=== PATIENT | male | born 1965 | race Caucasian/White ===

== ENCOUNTER → 2018-05-31 15:44 | Outpatient (CLI) | payer OTHER, SELFPAY ==
[2018-05-31 18:04] LABS: Alanine Aminotransferase 37 IU/L (21-72); Albumin 4.4 g/dL (3.5-5.0); Albumin Globulin Ratio 1.8 (1.0-2.8); Alkaline Phosphatase 56 U/L (38-126); Aspartate Aminotransferase 30 IU/L (17-59); Blood Urea Nitrogen 23 mg/dL (9-20); Calcium 9.6 mg/dL (8.4-10.2); Carbon Dioxide 31 mmol/L (22-32); Chloride 104 mmol/L (98-107); Cholesterol 174 mg/dL (140-199); Estimated Glomerular Filt Rate > 60.0 mL/min (>60); Globulin 2.5 g/dL (1.7-4.1); Glucose 92 mg/dL (70-100); HDL Cholesterol 63 mg/dL (40-60); HEMOLYSIS < 15 (0-50); LDL Cholesterol Calculated 82 mg/dL (<100); Potassium 4.4 mmol/L (3.4-5.1); Sodium 144 mmol/L (137-145); Total Protein 6.9 g/dL (6.3-8.2); Triglycerides 144 mg/dL (35-150)
[2018-05-31 18:33] LABS: Thyroid Stimulating Hormone 1.54 uIU/mL (0.47-4.68)
== END ==
PROVIDERS: PCP Family Medicine; Visit Provider Internal Medicine
DX: E78.00 Pure hypercholesterolemia, unspecified (principal); F32.9 Major depressive disorder, single episode, unspecified
CPT/HCPCS: 36415; 80053; 80061; 84443

== ENCOUNTER → 2021-06-14 09:59 | Outpatient (ROUT) | payer OTHER, SELFPAY ==
[2021-06-14 10:34] LABS: COVID19 -Nasal RAPID Negative (Negative)
== END ==
PROVIDERS: PCP Student in an Organized Health Care Education/Training Program; Visit Provider Nurse Practitioner
DX: Z20.822 Contact with and (suspected) exposure to COVID-19 (principal)
CPT/HCPCS: 87635

== ENCOUNTER → 2021-10-08 11:19 | Outpatient (CLI) | payer OTHER, SELFPAY ==
--- NOTE | 2021-10-08 11:20 | DI.RAD.S_ITS ---
PROCEDURE: XR SINUS <3V INDICATIONS: Left sided sinus pain TECHNIQUE: 3 views of the sinuses were acquired. COMPARISON: None. FINDINGS: Sinuses: The visualized sinuses demonstrate no air-fluid levels or mucosal thickening. The visualized mastoids also appear clear. Bones: No suspicious bony lesions. Nasal septum is midline. IMPRESSION: Negative examination as above. Dictated by: Jose Houser M.D. on 10/08/2021 at 12:48 Approved by: Jose Houser M.D. on 10/08/2021 at 12:48
== END ==
PROVIDERS: PCP Student in an Organized Health Care Education/Training Program; Referring Provider Student in an Organized Health Care Education/Training Program; Visit Provider Student in an Organized Health Care Education/Training Program
DX: J34.89 Other specified disorders of nose and nasal sinuses (principal)
CPT/HCPCS: 70210

== ENCOUNTER → 2022-05-17 11:18 | Outpatient (CLI) | payer OTHER, SELFPAY ==
[2022-05-17 12:37] LABS: COVID19 -Nasal RAPID Negative (Negative)
== END ==
PROVIDERS: PCP Student in an Organized Health Care Education/Training Program; Visit Provider Surgery
DX: Z20.822 Contact with and (suspected) exposure to COVID-19 (principal); Z01.812 Encounter for preprocedural laboratory examination
CPT/HCPCS: 87635; C9803

== ENCOUNTER 2022-05-18 08:43 | Day surgery (SDC) | payer OTHER, SELFPAY ==
[2022-05-18 09:09] VITALS: BP 120/70; PULSE 48; RESP 16; TEMP 36.6; O2SAT 100; BMI 23.0
[2022-05-18] MEDS: LACTATED RINGERS 1,000 ML 150 ML IV (09:21)
--- NOTE | 2022-05-18 09:27 | PM.HP.1 ---
History of Present Illness History of Present Illness Date Patient Seen: 05/18/22 Time Patient Seen: 09:27 [address]: [facility] [place] Narrative: Last colonoscopy 10 years ago. No symptoms or family history for colon cancer Patient History Medical History Anxiety (2011) Asthma Chronic headaches Colon polyps (01/20/16) Depression (2011) Hayfever History of prematurity Hyperlipidemia Tibia/fibula fracture (11/2013) Surgical History Anesthesia History of colonoscopy with polypectomy (01/20/16) History of esophagogastroduodenoscopy (EGD) (01/20/16) History of knee surgery (1989) History of open reduction and internal fixation (ORIF) procedure (11/2013) History of tonsillectomy (2010) Family & Social History Family History Brother Age: 52 Osteoporosis Father CAD (coronary artery disease) [place] (myocardial infarction) Mother Age: 81 Hyperlipidemia Social History: household members spouse Tobacco & Substance use: Smoking Status Never smoker alcohol intake current alcohol intake frequency a few times a month Substance Use Type does not use Meds Home Medications and Allergies Home Medications Medication Instructions Recorded Confirmed Type levothyroxine PO 06/14/21 10/08/21 History citalopram 20 mg tablet See Rx Instructions .Route 02/02/22 05/18/22 Rx .COMPLEX #90 tabs Allergies Allergy/AdvReac Type Severity Reaction Status Date / Time amoxicillin [From Augmentin] Allergy Mild Rash Verified 05/18/22 09:19 clavulanic acid Allergy Mild Rash Verified 05/18/22 09:19 [From Augmentin] Penicillins Allergy Mild Rash Verified 05/18/22 09:19 Review of Systems Review of Systems ROS: Yes All systems reviewed with the patient and are negative except as otherwise documented Exam Vital Signs (past 8 hours): - 05/18/22 09:09 Temperature 97.9 F Pulse Rate 48 L Respiratory Rate 16 Blood Pressure 120/70 Pulse Oximetry 100 Oxygen Delivery Method Room Air Oxygen Delivery Method Room Air Const General: cooperative, healthy appearing and comfortable [facility] Head: normal to inspection, normocephalic and atraumatic Nose: external nose normal Face and sinus: normal facial exam Mouth: oral mucosae normal Eyes General: appearance normal, both eyes and all related structures Sclera: sclerae normal Neck Neck: trachea midline Chest Chest: normal inspection of the chest Resp Effort & Inspection: normal respiratory effort and able to speak in complete sentences Auscultation: clear to auscultation bilaterally Cardio Rate: regular rate Rhythm: regular rhythm GI Inspection: normal to inspection Skin General: no rashes or lesions noted Neuro General: patient alert and patient oriented x3 Cognition: normal cognition Extrem General: normal to inspection and full ROM Psych Appearance: grossly normal Affect: normal affect Assessment & Plan Assessment & Plan narrative: colon cancer screening Colonoscopy with moderate sedation COVID-19 COVID-19 status: Negative Time Spent With Patient Time with patient: less than 30 minutes Critical Care time: I spent a total of [] minutes of critical care time on this patient's care today; this time is exclusive of procedural time.
--- NOTE | 2022-05-18 09:38 | PM.OP.COLON ---
Operative Date/Time/Diagnoses Date of procedure: 05/18/22 Time of procedure: 09:38 Pre-op diagnosis: colon cancer screening Post-op diagnosis: same Procedure & Clinicians Study performed: colonoscopy Same procedure as scheduled: Yes Indications: Colon cancer screening Surgeon: Kaycee Marsh Procedure Notes SCOAP/Timeout: Done Procedure in detail: Preop diagnosis: Colon cancer screening Postop diagnosis: Same Operative procedure: Colonoscopy with moderate sedation Findings: Normal colonoscopy. Slightly enlarged prostate without nodules. Surgeon: Ivette Marsh MD Anesthetic: Versed 10 mg, fentanyl 200 mcg, recommend MAC with next procedure. Procedure: Patient placed in a lateral position. Rectal exam performed showing normal tone no masses. Prostate also palpated showing slightly enlarged with no masses. Scope was inserted into the rectum and advanced to ileocecal valve with significant difficulty in that the patient was difficult to sedate. But ultimately successful with intubation of the cecum. Insufflation extraction of scope including retroflexion rectum had the above findings. Impression: Normal colonoscopy. Plan: Repeat colonoscopy in 10 years unless otherwise indicated by change in family history or clinical condition Sedation minutes: 23 Specimen(s): none sent Complications: none Impression: Normal colon. Needs higher form of sedation for next colonoscopy Post-procedure Recommendations: Colonoscopy in 10 years Follow up: as needed Disposition: PACU
[2022-05-18] MEDS: fentaNYL 250 MCG/5 ML INJ 200 MCG IV (10:05)
[2022-05-18] MEDS: MIDAZOLAM 5 MG/5 ML VIAL 10 MG IV (10:06)
[2022-05-18 10:08] VITALS: BP 109/73; PULSE 59; RESP 12; TEMP 36.2; O2SAT 97
[2022-05-18 10:14] VITALS: BP 107/70; PULSE 52; RESP 12; O2SAT 96
[2022-05-18 10:19] VITALS: BP 97/62; PULSE 55; RESP 12; O2SAT 97
[2022-05-18 10:23] VITALS: BP 114/75; PULSE 57; RESP 12; TEMP 36.6; O2SAT 97
[2022-05-18 10:34] VITALS: BP 113/70; PULSE 60; RESP 16; TEMP 36.4; O2SAT 98
== END 2022-05-18 10:41 | disposition home or self-care (01) ==
PROVIDERS: PCP Student in an Organized Health Care Education/Training Program; Referring Provider Surgery; Visit Provider Surgery
PROC: 0DJD8ZZ Inspection of Lower Intestinal Tract, Via Natural or Artificial Opening Endoscopic (ICD-10-PCS; CPT 45378; principal; 2022-05-18 10:00)
DX: Z12.11 Encounter for screening for malignant neoplasm of colon (principal)
CPT/HCPCS: 45378; 99152; 99153; J2250; J3010